=== PATIENT | male | born 1935 | race Caucasian/White ===

== ENCOUNTER → 2016-09-04 | Outpatient (CLI) | payer MEDICARE, BC | END | disposition home or self-care (01) | LOC: PTH.S 07:45 | DX: Z01.818 Encounter for other preprocedural examination (principal); J44.9 Chronic obstructive pulmonary disease, unspecified ==

== ENCOUNTER 2016-09-10 05:47 | Day surgery (SDC) | payer MEDICARE, BC ==
[~2016-09-10] VITALS: Ht 185.4 cm; Wt 75.8 kg
--- NOTE | 2016-09-10 13:39 | OR ---
ADMIT: 09/10/2016 RM/LOC: [facility] MR#: [id number] [id number] Shemar LOTT TONA [address] [place] [id number] Operative/Delivery Room Report SEX: M AGE: 81 : 1935 SURGERY DATE: 09/10/2016 SURGEON: Daniel Cortes MD CHANNEL DEVELOPMENT MANAGER: Alize Villagran APRN PREOPERATIVE DIAGNOSIS: Severe stenosis with neurogenic claudication, T12-L1. POSTOPERATIVE DIAGNOSIS: Severe stenosis with neurogenic claudication, T12- L1. PROCEDURE: Minimally invasive lumbar laminectomy, T12-L1, with direct visualization of decompressed elements with intraoperative fluoroscopy as well as intraoperative use of microscopy with microsurgical dissection technique. DESCRIPTION OF PROCEDURE: After gaining informed consent, the patient was taken to the operative theater, placed under general endotracheal anesthesia in supine position. A time-out was utilized to ascertain the correct site and side of surgery as well as other pertinent patient historical information. Counts were obtained in the beginning and end of the case with no change betwixt the two. Antibiotics were given within 1 hour of incision. The fluoroscope was brought into the field, and the screws at T11 and L3 were noted. We also counted up from what appeared to be L5-S1 although counting was somewhat difficult with this hardware. The level seemed to coincide nicely with known location of prior screws. The T12-L1 level was delineated. Stab incision was fashioned and the sequentially dilating tubular retractor systems were docked over top of the lamina at T12-L1. Once this was completed, attention was turned to bring in the scope into the field, and the rest of the case was done with microsurgical dissection technique with the microscope. Various curettes, rongeurs, and a high-speed drill were used to very cautiously drill off the posterior elements and then resect the overgrown ligamentum flavum, resecting widely into the neuroforamen, utilizing extreme caution and small Kerrison punch rongeurs, limiting any anchors into the canalicular space over top of the spinal cord. Once this was completed, the contralateral side was evaluated, and the high-speed drill and curettes and rongeurs were again used resecting off as much of the lamina and ligamentum flavum as possible, sounding out laterally and revealing what appeared to be a widely decompressed thecal sac. Once this was completed, attention was turned to closure. Pristine hemostasis was obtained. The tubular retractor system was withdrawn. The wound was closed with simple interrupted 2-0 Vicryl in thoracodorsal fascia, simple inverted interrupted 2-0 Vicryl in the hypodermic ADMIT: 09/10/2016 RM/LOC: 518 [facility] MR#: [id number] [id number] [place] [id number] Operative/Delivery Room Report SEX: M AGE: 81 : 1935 tissue, and subcuticular 3-0 Stratafix on the skin. Ms. Villagran assisted with suction, retraction, and closure at the end of the case. COMPLICATIONS: None. ESTIMATED BLOOD LOSS: Charted. SPECIMEN: Posterior elements. DISPOSITION: Extubated and taken to postanesthesia care unit. Daniel Cortes MD/ junior JOB #: [id number] CC: Daniel Cortes, Attending Physician Pramod Rod, Family Physician
== END 2016-09-10 11:22 | disposition home or self-care (01) ==
LOC: SSS 05:47 → UNDOADMOB 05:47 → WOR 05:47 → 5MS 08:40 → WOR 08:40 → EDSTATUS 09:51 → SSS 11:22
PROC: 01N80ZZ Release Thoracic Nerve, Open Approach (ICD-10-PCS; principal; 2016-09-10)
DX: M48.05 Spinal stenosis, thoracolumbar region (principal); J45.909 Unspecified asthma, uncomplicated; J44.9 Chronic obstructive pulmonary disease, unspecified; M19.90 Unspecified osteoarthritis, unspecified site; Z98.890 Other specified postprocedural states; Z96.649 Presence of unspecified artificial hip joint; Z79.899 Other long term (current) drug therapy